=== PATIENT | female | born 1970 | race Caucasian/White ===

== ENCOUNTER → 2016-04-20 | Outpatient (CLI) | payer OTHER ==
--- NOTE | 2016-04-20 10:49 | DI ---
HISTORY: Increasing neck pain. COMPARISON: None available. FINDINGS: Examination reveals slight narrowing of the intervertebral disc space between C6/C7 with a ssociated mild hypertrophic spurring suggestive mild degenerative discogenic changes. There is no ev idence of fracture or dislocation. IMPRESSION: 1. Slight narrowing of the intervertebral disc space between C6/C7 with associated mild hypertrophic spurring suggestive mild degenerative discogenic changes. 2. No evidence of fracture or dislocation.
== END ==
LOC: MOB RAD 09:16
PROVIDERS: ATTEND Physician Assistant
DX: M54.2 Cervicalgia (principal); M47.812 Spondylosis without myelopathy or radiculopathy, cervical region; M48.02 Spinal stenosis, cervical region; W00.0XXA Fall on same level due to ice and snow, initial encounter; Y93.89 Activity, other specified; Y92.531 Health care provider office as the place of occurrence of the external cause
CPT/HCPCS: 72050

== ENCOUNTER → 2016-04-25 | Outpatient (CLI) | payer OTHER, BC ==
--- NOTE | 2016-04-25 16:45 | DI ---
MRI CERVICAL SPINE W/O CN,04/25/2016 2:55 PM: Clinical History: Cervical radiculopathy. Previous Exam: July 03, 2014 Findings: Multiplanar MR images are obtained through the cervical spine without contrast, and demonstrate anato eulalia alignment without fractures. Vertebral body height is preserved. Alignment is anatomic. Posterior fossa demonstrates 3 mm of protrusion of the cerebellar tonsils through the foramen magnum consisten t with an Arnold-Chiari type I malformation. Major vascular flow voids are unremarkable. There is no evidence of syringohydromyelia. The spinal cord descends normally with normal course, caliber and signal characteristics. Individual intervertebral disc spaces: C2/3: No significant stenosis. C3/4: There is a stable broad-based 3 mm disc bulge causing no significant stenosis. C4/5: There is disc desiccation and and a broad-based 2 mm disc bulge causing no significant stenosis . C5/6: No significant stenosis. C6/7: There is disc desiccation, loss of intervertebral disc height and a broad-based disc bulge slig htly eccentric to the left causing moderate central canal stenosis with mild left neural foraminal na rrowing. Impression: C3/4: There is a stable broad-based 3 mm disc bulge causing no significant stenosis. C4/5: There is disc desiccation and and a broad-based 2 mm disc bulge causing no significant stenosis . C5/6: No significant stenosis. C6/7: There is disc desiccation, loss of intervertebral disc height and a broad-based disc bulge slig htly eccentric to the left causing moderate central canal stenosis with mild left neural foraminal na rrowing.
== END ==
LOC: MRI 14:53
PROVIDERS: ATTEND Neurological Surgery
DX: M54.12 Radiculopathy, cervical region (principal); M50.323 Other cervical disc degeneration at C6-C7 level; M47.812 Spondylosis without myelopathy or radiculopathy, cervical region
CPT/HCPCS: 72141

== ENCOUNTER 2016-04-27 10:41 | Day surgery (SDC) | payer OTHER, BC ==
[2016-04-27] MEDS ORDERED: Iopamidol Inj 61% 50 ML VIAL INTRATHEC ONE (10:45)
[2016-04-27] MEDS ORDERED: Ropivacaine 0.2% VIAL 2 MG/ML VIAL IAC ONE (10:45)
[2016-04-27] MEDS ORDERED: SODIUM BICARBONATE IV ONE ×2 (10:45)
[2016-04-27] MEDS ORDERED: BETAMET ACET/BETAMET NA PH 6 MG/1 ML - 5 ML IAC ONE (10:45)
[2016-04-27] MEDS ORDERED: LIDOCAINE IV ONE ×2 (10:45)
[2016-04-27 11:02] VITALS: RESP 16; TEMP 98.4
--- NOTE | 2016-04-27 15:24 | GEN.OPNOTE ---
Interlaminar KLAUDIA Procedure: Interlaminar Epidural Steriod Injection Procedure Code - Neurosurgery: 78685 : Cervical Epidural Injection (Single), 75867 : Fluoroscopic Guidance Level: C7-T1 Preoperative Diagnosis: C6-7 disc herniation -: Consent: Rationale for procedure, nature of procedure, possible risks and benefits were discussed with the patient. Risks including allergic reaction to medications, known effects of steroid medications including transient elevation in blood sugar with aggravation of pre-existing diabetes and remote risk of aseptic necrosis of the hip. Pain at the injection site, inadvertent dural puncture with resultant in CSF leak and headache possibly requiring further treatment. Infection or bleeding with potential risk of neurologic injury with weakness, paralysis or were all reviewed with the patient who wished to proceed. Anesthesia, sedation: No intravenous access or sedation was used. Physiologic monitoring of pulse and oxygen saturation was utilized. Procedure: The patient was placed prone on the operating room table, prepped with Chloroprep and sterilely draped. The skin was anesthetized with 1% Buffered Xylocaine. Under fluoroscopic control a 22-gauge Touhy needle was advanced into the epidural space at the [C7-T1] level. Using loss-of- resistance technique the epidural space was identified. Omnipaque was injected under real-time fluoroscopy demonstrating an epidurogram. Following this [5] ml of a mixture of Celestone (6mg/ml) and 1% lidocaine was injected epidurally. AP and lateral images of the final needle placement were obtained. The needle was removed and the patient returned to the post procedure recovery room where they were monitored for any side effects. Pain assessment: Preprocedure pain [4]/10, post procedure pain [4]/10. Discharge instructions: Patient was given a pain log to be filled out and returned. A delayed response to the steroids of 2-5 days was discussed.
== END 2016-04-27 12:24 | disposition home or self-care (01) ==
LOC: SDSC 10:41
PROVIDERS: ATTEND Neurological Surgery
DX: M50.223 Other cervical disc displacement at C6-C7 level (principal)
CPT/HCPCS: 62321; 76000; J0702; J2795

== ENCOUNTER → 2016-06-29 | Outpatient (CLI) | payer BC ==
[2016-06-29 15:27] LABS: BASOPHILS # (AUTO) 0 10*3/UL; BASOPHILS % (AUTO) 0 % (0-1); EOSINOPHILS % (AUTO) 1.4 % (0-8); HEMATOCRIT 43.3 % (37.0-47.0); HEMOGLOBIN 14.4 g/dL (12.0-16.0); LYMPHOCYTES # (AUTO) 2.44 10*3/uL; MEAN CORPUSCULAR HEMOGLOBIN 31.6 PG (27-31); MEAN CORPUSCULAR HGB CONC 33.3 g/dL (33-37); MONOCYTES # (AUTO) 0.42 10*3/UL (0.3-0.8); MONOCYTES % (AUTO) 5.7 % (5-15); NEUTROPHILS # (AUTO) 4.42 10*3/UL; NEUTROPHILS % (AUTO) 59.8 % (50-80); RED BLOOD COUNT 4.56 10^6/uL (4.20-5.40)
[2016-06-29 15:33] LABS: PLATELET MORPHOLOGY COMMENT NORMAL MORPHOLOGY (NORM); RBC MORPHOLOGY COMMENT NORMAL MORPHOLOGY (NORM); WBC MORPHOLOGY COMMENT NORMAL MORPHOLOGY (NORM)
[2016-06-29 15:44] LABS: BLOOD UREA NITROGEN 19 mg/dL (7-22); BUN/CREATININE RATIO 21.11 (6-20); CALCIUM 9.5 mg/dL (8.7-10.7); EST GLOMERULAR FILTRATION > 60 (>60 ml/min/1.73m(2)); SERUM ALBUMIN 4.2 g/dL (3.5-4.8)
== END ==
LOC: MOB LAB 13:09
PROVIDERS: ATTEND Orthopaedic Surgery
DX: Z01.812 Encounter for preprocedural laboratory examination (principal); M50.222 Other cervical disc displacement at C5-C6 level
CPT/HCPCS: 36415; 80053; 85025; 85610; 85730; 87641

== ENCOUNTER → 2016-09-19 | Outpatient (CLI) | payer BC, OTHER ==
--- NOTE | 2016-09-19 22:46 | DI ---
CERVICAL SPINE SERIES, 09/19/2016 1:14 PM: Clinical History: Neck pain. Status post C6-7 disc surgery. Previous Exam: 04/20/2016. 3 routine upright views are submitted. The vertebral bodies are normal in height and size. Since the previous study, a prosthetic metallic disc has been inserted at the C6-7 level with resection of the anterior osteophytes. The remaining disc spaces are of normal height. Posterior bony proliferative ch keisha is present along the inferior margin of the C6 vertebral body. Posterior alignment and lateral m asses are normal. C1 articulates normally with C2 and the occiput. Prevertebral soft tissue planes ar e normal. The patient is status post ORIF of a left mandibular fracture. Readin. Status post resection of the anterior osteophytes at C6-7 with placement of a metallic disc prost hesis at the C6-7 level. Alignment and position are anatomic. 2. The remainder of the cervical spine study is normal.
== END ==
LOC: RAD 13:09
PROVIDERS: ATTEND Orthopaedic Surgery
DX: M54.2 Cervicalgia (principal); M48.02 Spinal stenosis, cervical region
CPT/HCPCS: 72040

== ENCOUNTER → 2016-10-15 | Outpatient (CLI) | payer BC ==
--- NOTE | 2016-10-17 15:46 | HOLTER ---
[facility] Interpretive Statements Family HX of cardiac and diabetes Forty eight hour holter done for palpitations. Activity diary kept but no symptoms recorded with ectopy. There were 714223 beats recorded with 342323 normal beats. The average sinus rate was 88 with minimum rate of 63 and fastest sinus rate of 13O at 9 pm. It is noted that patient exhibited faster rates (96- 108) with light activity such as cooking or cleaning kitchen and had some chest pressure with sinus tachycardia at 108. There were 530 VPCs, all singlets and 25 PACs with 23 singlets and 1 pair. No sustained ectopic tachycardia, bigeminey or trigeminey was seen and no recorded symptoms with ectopy. There were no significant pauses or diagnostic ST-T wave changes. IMP: Mildly abnormal holter study with an average of 11 asymptomatic unifocal VPCs/hour and rare PACS. The only symptom recorded was chest pressure with sinus tachycardia. It is of note that patient exhibited increased sinus rates of 90s- 108 with light physical activity or eating perhaps reflecting physical deconditioning. Consider an emperic trial of low dose B-blockers or CA antagonists to see if this corrects symptoms. Electronically Signed On 10-17-16 17:49:32 MDT by Jatinder Calderón [id number]
== END ==
LOC: RT 12:48
PROVIDERS: ATTEND Nurse Practitioner Family
DX: R00.2 Palpitations (principal); R00.0 Tachycardia, unspecified
CPT/HCPCS: 93225; 93226; 93227